=== PATIENT | female | born 1950 | race Caucasian/White ===

== ENCOUNTER → 2017-11-09 | Outpatient (CLI) | payer MEDICARE, OTHER ==
[~2017-11-09] MED LIST: AMLODIPINE PO; LISINOPRIL10 MG PO; OMEPRAZOLE40 MG PO; SUCRALFATE1 GM PO
--- NOTE | 2017-11-09 16:50 | Diagnostic Imaging Report ---
PROCEDURE: C-SPINE AP AND LAT WITH FLEX AND EXT COMPARISON: 05/07/17 INDICATIONS: FUSION STATUS C-SPINE FINDINGS: Anterior cervical discectomy and fusion redemonstrated from C4-C7. The plate is intact without evidence of lucency to suggest loosening. Alignment is stable. No listhesis with flexion or extension. Facets and spinous processes are normally aligned. Alignment is maintained on AP image. Skull base and upper chest are unremarkable. The prevertebral soft tissues are normal. CONCLUSION: Stable postoperative changes from ACDF. No listhesis with flexion or extension. No new cervical findings. Dictated by: John Lopez M.D. on 11/09/2017 at 16:50 Electronically approved by: John Lopez M.D. on 11/09/2017 at 16:50
== END | disposition home or self-care (01) ==
LOC: RAD 11:42
PROVIDERS: ATTEND Neurological Surgery
DX: M50.20 Other cervical disc displacement, unspecified cervical region (principal); Z98.1 Arthrodesis status
CPT/HCPCS: 72050

== ENCOUNTER 2022-02-26 14:00 | Outpatient (RCR) | payer MEDICARE, OTHER | END 2022-02-27 | LOC: PT 14:00 | PROVIDERS: ATTEND Specialist | DX: M25.562 Pain in left knee (principal) ==

== ENCOUNTER 2022-02-28 12:29 | Outpatient (RCR) | payer MEDICARE, OTHER | END 2022-03-30 | LOC: PT 12:29 | PROVIDERS: ATTEND Specialist | DX: M25.562 Pain in left knee (principal) | CPT/HCPCS: 97139 ==

== ENCOUNTER → 2022-04-30 | Outpatient (RCR) | payer MEDICARE, OTHER | LOC: PT 04-01 11:24 | PROVIDERS: ATTEND Specialist | DX: M17.12 Unilateral primary osteoarthritis, left knee (principal); M62.81 Muscle weakness (generalized); R26.2 Difficulty in walking, not elsewhere classified ==

== ENCOUNTER 2022-05-02 07:25 | Outpatient (RCR) | payer MEDICARE, OTHER ==
[2022-05-10] MEDS ORDERED: BIOTIN1 MG PO (10:32)
[2022-05-10] MEDS ORDERED: AMLODIPINE BESY10 MG PO (10:32)
[2022-05-10] MEDS ORDERED: CALCIUM + VITA1 EACH PO (10:32)
[2022-05-10] MEDS ORDERED: MULTI-VITAMIN1 EACH PO (10:32)
[2022-05-10] MEDS ORDERED: METOPROLOL SUCC50 MG PO (10:34)
[2022-05-10] MEDS ORDERED: DIOVAN160 MG PO (10:34)
[2022-05-10] MEDS ORDERED: ARTHRITIS PO (10:36)
[2022-05-10] MEDS ORDERED: TYLENOL325 M2 PO (10:36)
[2022-05-10] MEDS ORDERED: IBUPROFEN200 MG PO (10:36)
== END 2022-05-30 ==
LOC: PT 07:25
PROVIDERS: ATTEND Specialist
DX: M17.12 Unilateral primary osteoarthritis, left knee (principal); M62.81 Muscle weakness (generalized); R26.2 Difficulty in walking, not elsewhere classified

== ENCOUNTER → 2022-05-15 | Day surgery (SDC) | payer MEDICARE, OTHER ==
[2022-05-13 11:47] LABS: BASOPHILS # (AUTO) 0.1 (0.0-0.1); BASOPHILS % 0.6 % (0.0-1.0); HEMATOCRIT 43.1 % (34.2-44.1); HEMOGLOBIN 13.7 g/dL (12.0-16.0); LYMPHOCYTES # (AUTO) 2.8 (1.0-3.2); LYMPHOCYTES % 33.8 % (18.0-39.1); MEAN CORPUSCULAR HEMOGLOBIN 29.3 pg (28-32); MEAN CORPUSCULAR HGB CONC 31.8 g/dL (31-35); MEAN CORPUSCULAR VOLUME 92.1 fL (81-99); MONOCYTES # (AUTO) 0.5 (0.2-0.8); MONOCYTES % 6.1 % (4.4-11.3); NEUTROPHILS # (AUTO) 4.9 (2.1-6.9); NEUTROPHILS % 59.3 % (38.7-80.0); PLATELET COUNT 324 x10e3/uL (140-360); RED BLOOD COUNT 4.68 x10e6/uL (3.6-5.1); RED CELL DISTRIBUTION WIDTH 13.5 % (11.7-14.4)
[~2022-05-15] MED LIST changes: +AMLODIPINE BESY10 MG PO; +ARTHRITIS PO; +BIOTIN1 MG PO; +BUPIVACAINE 0.25% 30ML SDV ONE; +CALCIUM + VITA1 EACH PO; +DEXAMETHASONE SOD PHOS INJ 4 MG/ML SDV ONE; +DIOVAN160 MG PO; +EPHEDRINE SULFATE INJ 50 MG/ML VIAL ONE; +FENTANYL CITRATE/PF 100MCG/2 ML INJ ONE; +IBUPROFEN200 MG PO; +KETOROLAC TROMETHAMINE 30 MG/ML VIAL ONE; +LIDOCAINE 2% /EPINEPHRINE 20 ML SDV INJ ONE; +LIDOCAINE HCL 2% LOCAL INJ 5 ML SDV VIAL INJ ONE; +METOPROLOL SUCC50 MG PO; +MIDAZOLAM HCL 2 MG/2 ML VIAL ONE; +MULTI-VITAMIN1 EACH PO; +ONDANSETRON HCL INJ 2MG/ML 2ML 2 MG/ML VIAL ONE; +POVIDONE IODINE 0.05% 0.05 % ML PO ONE; +PROPOFOL IV EMULSION 10 MG/ML 20 ML VIAL ONE; +SEVOFLURANE INHAL SOLN 250 ML PEN BTL ONE; +TYLENOL325 M2 PO
[2022-05-15 14:35] VITALS: BP 126/70
== END | disposition home or self-care (01) ==
LOC: OR 10:23
PROVIDERS: ATTEND Specialist
DX: S83.242A Other tear of medial meniscus, current injury, left knee, initial encounter (principal); S83.262A Peripheral tear of lateral meniscus, current injury, left knee, initial encounter; M17.12 Unilateral primary osteoarthritis, left knee; M22.42 Chondromalacia patellae, left knee; M67.52 Plica syndrome, left knee; S76.312A Strain of muscle, fascia and tendon of the posterior muscle group at thigh level, left thigh, initial encounter; I10 Essential (primary) hypertension; X58.XXXA Exposure to other specified factors, initial encounter; Y93.89 Activity, other specified; Y92.89 Other specified places as the place of occurrence of the external cause; Z88.2 Allergy status to sulfonamides; Z01.812 Encounter for preprocedural laboratory examination; Z01.818 Encounter for other preprocedural examination; Z79.899 Other long term (current) drug therapy
CPT/HCPCS: 29880; 36415; 71046; 85025; J0690; J1100; J1885; J2001; J2250; J2405; J2704; J3010

== ENCOUNTER → 2022-06-30 | Outpatient (RCR) | payer MEDICARE, OTHER ==
[~2022-06-30] MED LIST changes: -BUPIVACAINE 0.25% 30ML SDV ONE; -DEXAMETHASONE SOD PHOS INJ 4 MG/ML SDV ONE; -EPHEDRINE SULFATE INJ 50 MG/ML VIAL ONE; -FENTANYL CITRATE/PF 100MCG/2 ML INJ ONE; -KETOROLAC TROMETHAMINE 30 MG/ML VIAL ONE; -LIDOCAINE 2% /EPINEPHRINE 20 ML SDV INJ ONE; -LIDOCAINE HCL 2% LOCAL INJ 5 ML SDV VIAL INJ ONE; -MIDAZOLAM HCL 2 MG/2 ML VIAL ONE; -ONDANSETRON HCL INJ 2MG/ML 2ML 2 MG/ML VIAL ONE; -POVIDONE IODINE 0.05% 0.05 % ML PO ONE; -PROPOFOL IV EMULSION 10 MG/ML 20 ML VIAL ONE; -SEVOFLURANE INHAL SOLN 250 ML PEN BTL ONE
== END ==
LOC: PT 06-02 13:46
PROVIDERS: ATTEND Specialist
DX: S83.262D Peripheral tear of lateral meniscus, current injury, left knee, subsequent encounter (principal); Z47.89 Encounter for other orthopedic aftercare; M17.12 Unilateral primary osteoarthritis, left knee

== ENCOUNTER 2022-07-16 13:00 | Outpatient (RCR) | payer MEDICARE, OTHER | END 2022-07-30 | LOC: PT 13:00 | PROVIDERS: ATTEND Specialist | DX: S83.262D Peripheral tear of lateral meniscus, current injury, left knee, subsequent encounter (principal); M17.12 Unilateral primary osteoarthritis, left knee; Z47.89 Encounter for other orthopedic aftercare ==

== ENCOUNTER → 2022-12-26 | Outpatient (CLI) | payer MEDICARE, OTHER | LOC: RAD 10:15 | PROVIDERS: ATTEND Internal Medicine Critical Care Medicine | DX: R06.00 Dyspnea, unspecified (principal) | CPT/HCPCS: 71046 ==

== ENCOUNTER 2023-01-12 11:37 | Emergency (ER) | payer MEDICARE, OTHER ==
[~2023-01-12] VITALS: Ht 167.6 cm; Wt 99.3 kg
[2023-01-12] MEDS ORDERED: ALBUTEROL/IPRATROPIUM 3 ML NEB NEB ONE (12:00)
[2023-01-12] MEDS ORDERED: ASPIRIN 325 MG TAB PO ONE (12:00)
[2023-01-12] MEDS ORDERED: METHYLPREDNISOLONE SOD SUCC 125 MG/2ML VIAL IV ONE (12:00)
[2023-01-12 12:06] LABS: BASOPHILS # (AUTO) 0.1 (0.0-0.1); BASOPHILS % 0.7 % (0.0-1.0); HEMATOCRIT 43.9 % (34.2-44.1); HEMOGLOBIN 14.3 g/dL (12.0-16.0); LYMPHOCYTES # (AUTO) 3.5 (1.0-3.2); LYMPHOCYTES % 38.4 % (18.0-39.1); MEAN CORPUSCULAR HEMOGLOBIN 29.9 pg (28-32); MEAN CORPUSCULAR HGB CONC 32.6 g/dL (31-35); MEAN CORPUSCULAR VOLUME 91.6 fL (81-99); MONOCYTES # (AUTO) 0.6 (0.2-0.8); MONOCYTES % 6.1 % (4.4-11.3); NEUTROPHILS # (AUTO) 4.9 (2.1-6.9); NEUTROPHILS % 54.6 % (38.7-80.0); PLATELET COUNT 271 x10e3/uL (140-360); RED BLOOD COUNT 4.79 x10e6/uL (3.6-5.1); RED CELL DISTRIBUTION WIDTH 13.8 % (11.7-14.4)
[2023-01-12 12:09] VITALS: PULSE 84; RESP 18; O2SAT 99
[2023-01-12 12:22] LABS: INR 0.9; PROTHROMBIN TIME 12.6 seconds (11.9-14.5)
[2023-01-12 12:33] LABS: ALANINE AMINOTRANSFERASE 13 IU/L (0-55); ALBUMIN 3.9 g/dL (3.5-5.0); ALBUMIN/GLOBULIN RATIO 1.3 (0.8-2.0); ALKALINE PHOSPHATASE 71 IU/L (40-150); ANION GAP 13.2 mmol/L (8-16); BLOOD UREA NITROGEN 16 mg/dL (7-26); BUN/CREATININE RATIO 20 (6-25); CALCIUM 9.4 mg/dL (8.4-10.2); CARBON DIOXIDE 22 mmol/L (22-29); CHLORIDE 108 mmol/L (98-107); CREATINE KINASE 54 IU/L (29-168); CREATININE, SERUM 0.82 mg/dL (0.57-1.11); GLUCOSE 81 mg/dL (74-118); POTASSIUM 4.2 mmol/L (3.5-5.1); SODIUM 139 mmol/L (136-145)
[2023-01-12] MEDS ORDERED: DOXYCYCLINE HY100 MG PO (14:12)
[2023-01-12] MEDS ORDERED: PREDNISONE50 MG PO (14:12)
[2023-01-12 14:25] VITALS: BP 126/70; PULSE 74; RESP 18; O2SAT 99
== END 2023-01-12 14:40 | disposition home or self-care (01) ==
LOC: ER 11:45
DX: R06.02 Shortness of breath (principal); J40 Bronchitis, not specified as acute or chronic; R00.2 Palpitations; R05.9 Cough, unspecified
CPT/HCPCS: 36415; 71045; 80053; 82550; 82553; 84484; 85025; 85610; 93005; 94640; 94799; 99284; J2930